=== PATIENT | female | born 1940 | race Caucasian/White ===

== ENCOUNTER 2020-02-23 10:11 | Outpatient (REF) | payer MEDICARE, BC, SELFPAY ==
[2020-02-23 11:50] LABS: Vitamin B12 > 2000 pg/mL (200-900)
== END 2020-02-23 10:12 | disposition home or self-care (01) ==
LOC: HO.LAB 10:11
PROVIDERS: PCP Internal Medicine; Visit Provider Psychiatry & Neurology Neurology
DX: G30.9 Alzheimer's disease, unspecified (principal)
CPT/HCPCS: 82607

== ENCOUNTER 2020-03-08 09:03 | Outpatient (REF) | payer MEDICARE, BC, SELFPAY ==
--- NOTE | 2020-03-08 09:05 | MR_ITS ---
EXAMINATION: MR BRAIN WITHOUT CONTRAST CLINICAL INFORMATION: Alzheimer's disease. COMPARISON: None available. TECHNIQUE: MRI of the brain was obtained using routine sequences without contrast. FINDINGS: No focal restricted diffusion is demonstrated to suggest acute or subacute cerebral ischemia. No evidence of acute or chronic hemorrhagic products on heme-sensitive imaging. Scattered periventricular and deep white matter T2 FLAIR hyperintensities consistent with moderate underlying microangiopathy. 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 Relatively proportional prominence of the ventricles and sulcal spaces without evidence of obstructive hydrocephalus. Qualitatively, volume loss may be slightly disproportionately involve the frontal and temporal lobes. Mild prominence of the perivascular spaces within the basal ganglia. No abnormal mass effect. No midline shift. Normal appearance of the pituitary gland. No abnormalities of the posterior fossa with normal appearance of the brainstem and cerebellum. Normal positioning of the cerebellar tonsils. Normal arterial and venous vascular flow voids are present. Normal, homogeneous marrow signal. 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 Mild mucosal thickening of the paranasal sinuses. No signal abnormalities within the mastoids. MR/MR head/brain wo con IMPRESSION: 1. No acute intracranial abnormalities. 2. Moderate underlying microangiopathy and generalized cerebral volume loss. Qualitatively, volume loss may slightly disproportionately involve the frontal and temporal lobes.
== END 2020-03-08 09:04 | disposition home or self-care (01) ==
LOC: HO.MRI 09:03
PROVIDERS: Visit Provider Psychiatry & Neurology Neurology
DX: G30.9 Alzheimer's disease, unspecified (principal)
CPT/HCPCS: 70551

== ENCOUNTER 2024-12-20 12:53 | Outpatient (AMB) | payer MEDICARE, BC, SELFPAY ==
--- NOTE | 2024-12-20 12:57 | A.OFFVIS_ITS ---
Intake Visit Reasons: 6 month Accompanied by: Family/Other Allergies No Known Allergies Allergy (Verified 12/20/24 12:58) Medication List - Last Reconciled 12/20/24 by Melissa Mosher CNP [id number] 100-62.5-25 mcg (Trelegy Ellipta) 1 ea inhalation DAILY memantine 10 mg PO BID pantoprazole 40 mg PO DAILY sertraline 25 mg PO DAILY 90 days simvastatin 20 mg PO BEDTIME HPI Comments Details: 84-year-old woman with dementia. She was doing okay. She was living alone, but had caregiver and family that checked in regularly. She was more forgetful and repetitive. She needed more reminders. She had meals on wheels. Sleep was okay. Mood was okay. No falls. She enjoyed spending time outside and doing wordsearch puzzles. [facility] Medical History (Updated 12/20/24 @ 13:02 by Melissa Mosher CNP) GERD (gastroesophageal reflux disease) COPD (chronic obstructive pulmonary disease) Review of Systems Const Denies chills, Denies daytime sleepiness, Denies difficulty sleeping, Denies fatigue, Denies fever(s), Denies frequent falls, Denies headache(s), Denies increased appetite, Denies poor appetite, Denies snoring, Denies weakness, Denies weight gain and Denies weight loss Eyes Denies loss of vision ENT Denies vertigo, Denies dizziness and Denies headache(s) Card Denies chest pain at rest, Denies chest pain with activity, Denies syncope, Denies leg edema and Denies palpitations Resp Denies snoring GI Denies constipation, Denies heartburn, Denies diarrhea and Denies nausea Denies urinary frequency, Denies urinary incontinence and Denies urinary urgency Musc Denies abnormal gait, Denies numbness and Denies tingling Skin/Breast Denies dry skin and Denies rash Neuro Denies abnormal gait, Denies vertigo, Denies dizziness, Denies syncope, Denies frequent falls, Denies headache(s), Denies lack of coordination, Denies loss of vision, Reports memory loss, Denies numbness, Denies restless legs, Denies seizure-like activity, Denies tingling, Denies paresthesias, Denies tremor(s) and Denies weakness Psych Denies anxiety, Denies depression, Denies auditory hallucinations, Reports memory loss, Denies visual hallucinations and Denies suicidal ideation Endo Denies fatigue and Denies palpitations Physical Exam Const Other: General Appearance:? normal, in no acute distress. Skin:? no rashes, no significant birthmarks. Heart:? S1, S2 normal, no murmurs. Lungs:? clear anteriorly and posteriorly. Extremities:? no edema. Psych:? alert, cooperative with exam. Neuro Other: Mental Status:?Normal attention and affect.?MMSE 17/30 Cranial Nerves:?Pupils are equal, round and reactive to light. External occular muscles are intact. Visual hawkins are full. Face is symmetrical. Facial sensatio ns are normal. Tongue is midline. Palate elevates symmetrically. Shoulder shrugging is normal. Hearing to bedside conversation is normal. Sensory Exam:?....? Coordination:?No ataxia,?no titubation.? Gait Exam: Cautious. Cerebellar Signs:?[id number] is okay. Extrapyramidal System:?No tremor, rigidity with normal facial expressions.? Pronator Drift:?Not present.? Involuntary Movements:?No tremors seen.? Speech:?Normal.? Results Reviewed Results Reviewed: MRI brain WO at [facility] [place] in Feb 2020: mod MVD, mod atrophy Assessment & Plan Assessment & Plan (1) Alzheimer dementia: Code(s): G30.9 - Alzheimer's disease, unspecified; F02.80 - Dementia in other diseases classified elsewhere, unspecified severity, without behavioral disturbance, psychotic disturbance, mood disturbance, and anxiety Category: Medical Qualifiers: Alzheimer's disease onset: unspecified onset Dementia severity: unspecified severity Dementia behavioral or psychological symptom: unspecified whether behavioral, psychotic, or mood disturbance or anxiety Qualified Code(s): G30.9 - Alzheimer's disease, unspecified; F02.80 - Dementia in other diseases classified elsewhere, unspecified severity, without behavioral disturbance, psychotic disturbance, mood disturbance, and anxiety Plan: Continue sertraline 25mg 1 tablet daily. Continue memantine 10mg 1 tablet twice a day. Plan Meds tried: donepezil (GI side effects) Coding Level of Care Code Est Pt Level 4 (74912) Diagnoses Alzheimer's dementia, unspecified dementia severity, unspecified timing of dementia onset, unspecified whether behavioral, psychotic, or mood disturbance or anxiety G30.9; F02.80 Alzheimer's disease onset: unspecified onset Dementia severity: unspecified severity Dementia behavioral or psychological symptom: unspecified whether behavioral, psychotic, or mood disturbance or anxiety
== END 2024-12-20 13:12 | disposition home or self-care (01) ==
LOC: HO.HSM 12:53
PROVIDERS: PCP Internal Medicine; Visit Provider Registered Nurse
DX: G30.9 Alzheimer's disease, unspecified (principal); F02.80 Dementia in other diseases classified elsewhere, unspecified severity, without behavioral disturbance, psychotic disturbance, mood disturbance, and anxiety
CPT/HCPCS: 99214

== ENCOUNTER → 2024-12-20 12:53 | Outpatient (BNVA) | payer MEDICARE, BC, SELFPAY | PROVIDERS: PCP Internal Medicine; Visit Provider Registered Nurse | DX: G30.9 Alzheimer's disease, unspecified (principal); F02.80 Dementia in other diseases classified elsewhere, unspecified severity, without behavioral disturbance, psychotic disturbance, mood disturbance, and anxiety; Z79.899 Other long term (current) drug therapy | CPT/HCPCS: 99212 ==